=== PATIENT | male | born 1995 | race Caucasian/White ===

== ENCOUNTER 2021-08-02 22:58 | Inpatient (IN) | payer MEDICAID, SELFPAY ==
--- NOTE | ~2021-08-02 | MR_ITS ---
MR BRAIN WITHOUT AND WITH CONTRAST MR CERVICAL SPINE WITHOUT AND WITH CONTRAST MR ANGIOGRAPHY BRAIN WITHOUT CONTRAST MR ANGIOGRAPHY NECK WITHOUT AND WITH CONTRAST CLINICAL INFORMATION: Right-sided weakness. Left-sided tingling. COMPARISON: Head CT August 03, 2021. TECHNIQUE: Multiplanar, multisequence MR imaging was performed through the brain and cervical spine before and after the intravenous administration of 10 mL Gadavist. In addition, 3D [id number] MR angiography was performed through the neck and brain without the use of intravenous contrast, and source images were reviewed along with rotating MIPs. Finally, bolus IV and postcontrast MR angiography was performed through the cervicocerebral vasculature. Source images were reviewed and additional volumetric and angled MIPs were independently generated and archived by the [facility]. Stenoses are assessed in accordance with NASCET criteria unless otherwise indicated. FINDINGS: BRAIN MRI: Moderate T2 signal hyperintense lesions within the supratentorial periventricular and juxtacortical white matter, the corpus callosum, as well as to a lesser extent the infratentorial brain most compatible with the sequela of demyelinating disease. There are multiple enhancing lesions within the anterior left frontal subcortical white matter, the right and left centrum semiovale, as well as the biparietal subcortical white matter and the left temporal white matter that are most suggestive of enhancing active demyelinating lesions. Multiple chronic low T1 signal intensity lesions. The stroke sensitive diffusion series and the blood sensitive gradient series are very limited by artifact from the patient's oral hardware. CERVICAL SPINE MRI: There is a T2 signal hyperintense lesion within the right half of the cord at the C2-C3 level exhibiting partial peripheral enhancement, most concerning for a focus of active demyelination given the intracranial findings. There is an additional lesion within the right lateral cord at C7-T1 that may exhibit partial peripheral enhancement and could also reflect a focus of active demyelination. No definite additional cord lesions with assessment limited by artifact. Straightening of the cervical lordosis. No bone marrow edema. Vertebral body heights are maintained. Disc volumes are preserved. Craniocervical junction is unremarkable. Cervical arterial flow voids are maintained. There are no significant extraspinal soft tissue findings. No significant cervical disc herniations. No central canal stenosis and no foraminal stenosis within the cervical spine. BRAIN MRA: Limited motion degraded MRA of the head with no definite proximal arterial occlusions. The distal intracranial arterial vasculature is not well assessed secondary to artifact and there is nondiagnostic assessment for aneurysms given the degree of artifact. NECK MRA: There is a classic configuration of the aortic arch. The vertebral arteries are codominant and widely patent from their ostia until their entry into the skull base. Both common and internal carotid arteries are normal in course and caliber. MR/MR cervical spine wo/w con IMPRESSION: - Moderate T2 signal hyperintense lesions within the supratentorial periventricular and juxtacortical white matter, the corpus callosum, as well as to a lesser extent the infratentorial brain most compatible with the sequela of demyelinating disease. There are multiple enhancing lesions within the anterior left frontal subcortical white matter, the right and left centrum semiovale, as well as the biparietal subcortical white matter and the left temporal white matter that are most suggestive of enhancing active demyelinating lesions. - There is a T2 signal hyperintense lesion within the right half of the cord at the C2-C3 level exhibiting partial peripheral enhancement, most concerning for a focus of active demyelination given the intracranial findings. There is an additional lesion within the right lateral cord at C7-T1 that may exhibit partial peripheral enhancement and could also reflect a focus of active demyelination. No definite additional cord lesions with assessment limited by artifact. - Limited motion degraded MRA of the head with no definite proximal arterial occlusions. The distal intracranial arterial vasculature is not well assessed secondary to artifact and there is nondiagnostic assessment for aneurysms given the degree of artifact. -Unremarkable MRA of the neck.
--- NOTE | ~2021-08-02 | XR_ITS ---
EXAMINATION: XR CHEST CLINICAL INFORMATION: Right-sided weakness COMPARISON: None TECHNIQUE: Frontal view of the chest was obtained. FINDINGS: The lungs are clear with no focal consolidation. No evidence of pneumothorax, pulmonary edema, or pleural effusions. The cardiomediastinal silhouette is unremarkable. No acute osseous findings. XR/XR chest 1V IMPRESSION: No acute cardiopulmonary findings.
--- NOTE | ~2021-08-02 | CT_ITS ---
EXAMINATION: CT HEAD WITHOUT CONTRAST CLINICAL INFORMATION: Right-sided weakness COMPARISON: None TECHNIQUE: Contiguous axial imaging was performed from the skull base to vertex without intravenous administration of contrast. This CT examination was performed using dose optimization techniques as appropriate, variously including the following: *Automated exposure control *Adjustment of mA and/or kV according to patient size (this includes techniques or standardized protocols for targeted exams where dose is matched to indication/reason for exam; i.e. extremities or head) *Use of iterative reconstruction technique DLP: 786 mGy-cm FINDINGS: There is no evidence of acute intracranial hemorrhage or territorial infarction. No abnormal mass effect or midline shift is seen. Wright to white matter differentiation is well preserved. No extra-axial fluid collections are identified. The ventricles are normal in size. There is no abnormal attenuation within the brain parenchyma. The osseous structures and soft tissues are normal. The mastoid air cells and visualized portions of the paranasal sinuses are well aerated. CT/CT head/brain wo con IMPRESSION: No acute intracranial pathology.
--- NOTE | ~2021-08-02 | MR_ITS ---
MR BRAIN WITHOUT AND WITH CONTRAST MR CERVICAL SPINE WITHOUT AND WITH CONTRAST MR ANGIOGRAPHY BRAIN WITHOUT CONTRAST MR ANGIOGRAPHY NECK WITHOUT AND WITH CONTRAST CLINICAL INFORMATION: Right-sided weakness. Left-sided tingling. COMPARISON: Head CT August 03, 2021. TECHNIQUE: Multiplanar, multisequence MR imaging was performed through the brain and cervical spine before and after the intravenous administration of 10 mL Gadavist. In addition, 3D [id number] MR angiography was performed through the neck and brain without the use of intravenous contrast, and source images were reviewed along with rotating MIPs. Finally, bolus IV and postcontrast MR angiography was performed through the cervicocerebral vasculature. Source images were reviewed and additional volumetric and angled MIPs were independently generated and archived by the [facility] laboratory. Stenoses are assessed in accordance with NASCET criteria unless otherwise indicated. FINDINGS: BRAIN MRI: Moderate T2 signal hyperintense lesions within the supratentorial periventricular and juxtacortical white matter, the corpus callosum, as well as to a lesser extent the infratentorial brain most compatible with the sequela of demyelinating disease. There are multiple enhancing lesions within the anterior left frontal subcortical white matter, the right and left centrum semiovale, as well as the biparietal subcortical white matter and the left temporal white matter that are most suggestive of enhancing active demyelinating lesions. Multiple chronic low T1 signal intensity lesions. The stroke sensitive diffusion series and the blood sensitive gradient series are very limited by artifact from the patient's oral hardware. CERVICAL SPINE MRI: There is a T2 signal hyperintense lesion within the right half of the cord at the C2-C3 level exhibiting partial peripheral enhancement, most concerning for a focus of active demyelination given the intracranial findings. There is an additional lesion within the right lateral cord at C7-T1 that may exhibit partial peripheral enhancement and could also reflect a focus of active demyelination. No definite additional cord lesions with assessment limited by artifact. Straightening of the cervical lordosis. No bone marrow edema. Vertebral body heights are maintained. Disc volumes are preserved. Craniocervical junction is unremarkable. Cervical arterial flow voids are maintained. There are no significant extraspinal soft tissue findings. No significant cervical disc herniations. No central canal stenosis and no foraminal stenosis within the cervical spine. BRAIN MRA: Limited motion degraded MRA of the head with no definite proximal arterial occlusions. The distal intracranial arterial vasculature is not well assessed secondary to artifact and there is nondiagnostic assessment for aneurysms given the degree of artifact. NECK MRA: There is a classic configuration of the aortic arch. The vertebral arteries are codominant and widely patent from their ostia until their entry into the skull base. Both common and internal carotid arteries are normal in course and caliber. MR/MR angio head wo con IMPRESSION: - Moderate T2 signal hyperintense lesions within the supratentorial periventricular and juxtacortical white matter, the corpus callosum, as well as to a lesser extent the infratentorial brain most compatible with the sequela of demyelinating disease. There are multiple enhancing lesions within the anterior left frontal subcortical white matter, the right and left centrum semiovale, as well as the biparietal subcortical white matter and the left temporal white matter that are most suggestive of enhancing active demyelinating lesions. - There is a T2 signal hyperintense lesion within the right half of the cord at the C2-C3 level exhibiting partial peripheral enhancement, most concerning for a focus of active demyelination given the intracranial findings. There is an additional lesion within the right lateral cord at C7-T1 that may exhibit partial peripheral enhancement and could also reflect a focus of active demyelination. No definite additional cord lesions with assessment limited by artifact. - Limited motion degraded MRA of the head with no definite proximal arterial occlusions. The distal intracranial arterial vasculature is not well assessed secondary to artifact and there is nondiagnostic assessment for aneurysms given the degree of artifact. -Unremarkable MRA of the neck.
[2021-08-03 00:05] VITALS: BP 151/77; PULSE 82; RESP 16; TEMP 36.9; O2SAT 100; BMI 20.7
--- NOTE | 2021-08-03 00:34 | ED.GENADULT ---
HPI - General Adult General Chief complaint: General Medical Stated complaint: Loosing movement legs/hands Time Seen by Provider: 08/03/21 00:34 Related Data Home Medications Medication Instructions Recorded Confirmed No Known Home Meds 08/03/21 08/03/21 Allergies Allergy/AdvReac Type Severity Reaction Status Date / Time No Known Allergies Allergy Unverified 08/02/20 18:56 [No Known Allergies*] FORMERLY [facility] Past Medical History Medical History No known health problems Social History Social History Household Members: Family Housing: House Do you presently have visiting nurse or other home services: No Patient Tobacco Use Status: Never used Tobacco Physical Exam Vital Signs: Vital Signs: Last Vital Signs Temp 97.9 F 08/04/21 23:31 Pulse 89 08/04/21 23:31 Resp 16 08/04/21 23:31 BP 98/60 08/04/21 23:31 Pulse Ox 98 08/04/21 23:31 Body Mass Index 20.7 Medical Decision Making Lab Data Result diagrams: 08/03/21 07:00 08/03/21 07:00 Labs: Lab Results 08/03/21 08/03/21 08/03/21 Range/Units 01:07 01:07 01:07 WBC 8.7 (4.8-10.8) X10*3/uL RBC 4.92 (4.60-5.80) X10*6/uL Hgb 14.7 (14.0-18.0) g/dl Hct 43.0 (42-52) % MCV 87.4 (80-98) fL MCH 29.9 (27.0-33.0) pg MCHC 34.2 (31.0-36.0) g/dl RDW 13.2 (11.0-16.0) % Plt Count 260 (160-400) X10*3/uL MPV 9.2 L (9.4-12.4) fL Immature Gran % (Auto) 0.1 (0.0-0.4) % Neut % (Auto) 49.8 (45-73) % Lymph % (Auto) 38.3 (20-40) % [place] % (Auto) 8.6 (2-11) % Eos % (Auto) 2.5 (0-4) % Baso % (Auto) 0.7 (0-2) % Lymph # (Auto) 3.3 (1.2-4.9) X10*3/uL [place] # (Auto) 0.8 (0.1-1.2) X10*3/uL Eos # (Auto) 0.2 (0.0-0.4) X10*3/uL Baso # (Auto) 0.1 (0.0-0.2) X10*3/uL Abs Immat Gran (auto) 0.01 (0.00-0.03) X10*3/uL Absolute Neuts (auto) 4.3 (2.0-8.3) X10*3/uL Absolute Nucleated RBC 0.000 (0.0-0.012) X10*3/uL Nucleated RBC % (auto) 0.0 (0.0-0.2) /100WBC Sodium 139 (135-145) mmol/L Potassium 3.6 (3.3-5.1) mmol/L Chloride 104 (96-108) mmol/L Carbon Dioxide 25 (22-29) mmol/L Anion Gap 14 (12-20) BUN 14 (9-16) mg/dL Creatinine 0.88 (0.5-1.4) mg/dL Estim Creat Clear Calc 121.4 Estimated GFR > 60 Random Glucose 101 (60-115) mg/dL Estimat Average Glucose mg/dL Hemoglobin A1c % % Calcium 9.9 (8.4-10.2) mg/dL Total Bilirubin 0.8 (0.0-1.0) mg/dL Direct Bilirubin 0.3 (0.0-0.5) mg/dL AST 14 (5-37) U/L ALT 13 (0-40) U/L Alkaline Phosphatase 44 (39-117) U/L Total Creatine Kinase 133 (38-174) U/L Troponin I High Sens < 3.5 (<3.5-35.0) ng/L B-Natriuretic Peptide 11 (<100) pg/mL Total Protein 7.2 (6.5-8.0) g/dL Albumin 4.8 (3.5-5.0) g/dL Lipase 15 (8-78) U/L TSH 1.82 (0.32-4.0) uIU/mL Urine Color Urine Appearance Urine pH (5.0-8.0) Ur Specific [place] (1.005-1.025) Urine Protein (NEG-TRACE) MG/DL Urine Glucose (UA) (NEG) MG/DL Urine Ketones (NEG) MG/DL Urine Blood (NEG) Urine Nitrite (NEG) Ur Leukocyte Esterase (NEG) Urine Opiates Screen (Not Detect) Urine Fentanyl Screen (Not Detect) Ur Barbiturates Screen (Not Detect) Ur Phencyclidine Scrn (Not Detect) Ur Amphetamines Screen (Not Detect) U Benzodiazepines Scrn (Not Detect) Urine Cocaine Screen (Not Detect) U Marijuana (THC) Screen (Not Detect) COVID-19 ([facility]) (Negative) COVID-19 Clin Com 08/03/21 08/03/21 08/03/21 Range/Units 01:07 01:07 02:06 WBC (4.8-10.8) X10*3/uL RBC (4.60-5.80) X10*6/uL Hgb (14.0-18.0) g/dl Hct (42-52) % MCV (80-98) fL MCH (27.0-33.0) pg MCHC (31.0-36.0) g/dl RDW (11.0-16.0) % Plt Count (160-400) X10*3/uL MPV (9.4-12.4) fL Immature Gran % (Auto) (0.0-0.4) % Neut % (Auto) (45-73) % Lymph % (Auto) (20-40) % [place] % (Auto) (2-11) % Eos % (Auto) (0-4) % Baso % (Auto) (0-2) % Lymph # (Auto) (1.2-4.9) X10*3/uL [place] # (Auto) (0.1-1.2) X10*3/uL Eos # (Auto) (0.0-0.4) X10*3/uL Baso # (Auto) (0.0-0.2) X10*3/uL Abs Immat Gran (auto) (0.00-0.03) X10*3/uL Absolute Neuts (auto) (2.0-8.3) X10*3/uL Absolute Nucleated RBC (0.0-0.012) X10*3/uL Nucleated RBC % (auto) (0.0-0.2) /100WBC Sodium (135-145) mmol/L Potassium (3.3-5.1) mmol/L Chloride (96-108) mmol/L Carbon Dioxide (22-29) mmol/L Anion Gap (12-20) BUN (9-16) mg/dL Creatinine (0.5-1.4) mg/dL Estim Creat Clear Calc Estimated GFR Random Glucose (60-115) mg/dL Estimat Average Glucose 97 mg/dL Hemoglobin A1c % 5.0 % Calcium (8.4-10.2) mg/dL Total Bilirubin (0.0-1.0) mg/dL Direct Bilirubin (0.0-0.5) mg/dL AST (5-37) U/L ALT (0-40) U/L Alkaline Phosphatase (39-117) U/L Total Creatine Kinase (38-174) U/L Troponin I High Sens (<3.5-35.0) ng/L B-Natriuretic Peptide (<100) pg/mL Total Protein (6.5-8.0) g/dL Albumin (3.5-5.0) g/dL Lipase (8-78) U/L TSH (0.32-4.0) uIU/mL Urine Color YELLOW Urine Appearance CLEAR Urine pH 6.0 (5.0-8.0) Ur Specific [place] 1.025 (1.005-1.025) Urine Protein NEG (NEG-TRACE) MG/DL Urine Glucose (UA) NEG (NEG) MG/DL Urine Ketones 5 (NEG) MG/DL Urine Blood NEG (NEG) Urine Nitrite NEG (NEG) Ur Leukocyte Esterase NEG (NEG) Urine Opiates Screen (Not Detect) Urine Fentanyl Screen (Not Detect) Ur Barbiturates Screen (Not Detect) Ur Phencyclidine Scrn (Not Detect) Ur Amphetamines Screen (Not Detect) U Benzodiazepines Scrn (Not Detect) Urine Cocaine Screen (Not Detect) U Marijuana (THC) Screen (Not Detect) COVID-19 ([facility]) Negative (Negative) COVID-19 Clin Com See Note 08/03/21 Range/Units 02:06 WBC (4.8-10.8) X10*3/uL RBC (4.60-5.80) X10*6/uL Hgb (14.0-18.0) g/dl Hct (42-52) % MCV (80-98) fL MCH (27.0-33.0) pg MCHC (31.0-36.0) g/dl RDW (11.0-16.0) % Plt Count (160-400) X10*3/uL MPV (9.4-12.4) fL Immature Gran % (Auto) (0.0-0.4) % Neut % (Auto) (45-73) % Lymph % (Auto) (20-40) % [place] % (Auto) (2-11) % Eos % (Auto) (0-4) % Baso % (Auto) (0-2) % Lymph # (Auto) (1.2-4.9) X10*3/uL [place] # (Auto) (0.1-1.2) X10*3/uL Eos # (Auto) (0.0-0.4) X10*3/uL Baso # (Auto) (0.0-0.2) X10*3/uL Abs Immat Gran (auto) (0.00-0.03) X10*3/uL Absolute Neuts (auto) (2.0-8.3) X10*3/uL Absolute Nucleated RBC (0.0-0.012) X10*3/uL Nucleated RBC % (auto) (0.0-0.2) /100WBC Sodium (135-145) mmol/L Potassium (3.3-5.1) mmol/L Chloride (96-108) mmol/L Carbon Dioxide (22-29) mmol/L Anion Gap (12-20) BUN (9-16) mg/dL Creatinine (0.5-1.4) mg/dL Estim Creat Clear Calc Estimated GFR Random Glucose (60-115) mg/dL Estimat Average Glucose mg/dL Hemoglobin A1c % % Calcium (8.4-10.2) mg/dL Total Bilirubin (0.0-1.0) mg/dL Direct Bilirubin (0.0-0.5) mg/dL AST (5-37) U/L ALT (0-40) U/L Alkaline Phosphatase (39-117) U/L Total Creatine Kinase (38-174) U/L Troponin I High Sens (<3.5-35.0) ng/L B-Natriuretic Peptide (<100) pg/mL Total Protein (6.5-8.0) g/dL Albumin (3.5-5.0) g/dL Lipase (8-78) U/L TSH (0.32-4.0) uIU/mL Urine Color Urine Appearance Urine pH (5.0-8.0) Ur Specific [place] (1.005-1.025) Urine Protein (NEG-TRACE) MG/DL Urine Glucose (UA) (NEG) MG/DL Urine Ketones (NEG) MG/DL Urine Blood (NEG) Urine Nitrite (NEG) Ur Leukocyte Esterase (NEG) Urine Opiates Screen Not Detected (Not Detect) Urine Fentanyl Screen Not Detected (Not Detect) Ur Barbiturates Screen Not Detected (Not Detect) Ur Phencyclidine Scrn Not Detected (Not Detect) Ur Amphetamines Screen Not Detected (Not Detect) U Benzodiazepines Scrn Not Detected (Not Detect) Urine Cocaine Screen Not Detected (Not Detect) U Marijuana (THC) Screen Not Detected (Not Detect) COVID-19 ([facility]) (Negative) COVID-19 Clin Com Discharge Plan Discharge Clinical Impression: Neurological complaint, Neurological disorder Patient Disposition: Admitted As Inpatient Interventions: Admission Worksheet (ED) Last Done: 08/04/21 16:56 Discharge Date/Time: 08/04/21 16:54
--- NOTE | 2021-08-03 00:58 | ECG_ITS ---
Test Reason : R SIDED WEAKNESS Blood Pressure : / mmHG Vent. Rate : 072 BPM Atrial Rate : 072 BPM P-R Int : 132 ms QRS Dur : 092 ms QT Int : 352 ms P-R-T Axes : 079 073 059 degrees QTc Int : 385 ms Normal sinus rhythm ST elevation, consider early repolarization, pericarditis, or injury Abnormal ECG No previous ECGs available Referred By: Robel Mixon Electronically Signed By:FAVIOLA MARQUEZ
[2021-08-03 01:15] LABS: Basophils Absolute Auto 0.1 X10*3/uL (0.0-0.2); Basophils Percent Auto 0.7 % (0-2); Eosinophils Absolute Auto 0.2 X10*3/uL (0.0-0.4); Eosinophils Percent Auto 2.5 % (0-4); Hemoglobin 14.7 g/dl (14.0-18.0); Imm Gran Abs Auto 0.01 X10*3/uL (0.00-0.03); Imm Gran Pct Auto 0.1 % (0.0-0.4); Lymphocytes Absolute Auto 3.3 X10*3/uL (1.2-4.9); Lymphocytes Percent Auto 38.3 % (20-40); MANUAL DIFF FLAG NO; Mean Corpuscular HGB Conc 34.2 g/dl (31.0-36.0); Mean Corpuscular Hemoglobin 29.9 pg (27.0-33.0); Mean Corpuscular Volume 87.4 fL (80-98); Mean Platelet Volume 9.2 fL (9.4-12.4); Monocytes Absolute Auto 0.8 X10*3/uL (0.1-1.2); Monocytes Percent Auto 8.6 % (2-11); Neutrophils Absolute Auto 4.3 X10*3/uL (2.0-8.3); Neutrophils Percent Auto 49.8 % (45-73); Platelet Count 260 X10*3/uL (160-400); Red Blood Count 4.92 X10*6/uL (4.60-5.80); Red Cell Distribution Width 13.2 % (11.0-16.0); White Blood Count 8.7 X10*3/uL (4.8-10.8)
[2021-08-03 01:30] LABS: COVID-19 Test Negative (Negative); IDNOW Serial# 9DD0AD1C
[2021-08-03 01:31] LABS: Alanine Aminotransferase 13 U/L (0-40); Albumin Level 4.8 g/dL (3.5-5.0); Alkaline Phosphatase 44 U/L (39-117); Anion Gap 14 (12-20); Aspartate Amino Transferase 14 U/L (5-37); Bilirubin Direct 0.3 mg/dL (0.0-0.5); Bilirubin Total 0.8 mg/dL (0.0-1.0); Blood Urea Nitrogen 14 mg/dL (9-16); Calcium 9.9 mg/dL (8.4-10.2); Carbon Dioxide 25 mmol/L (22-29); Chloride 104 mmol/L (96-108); Creatinine Clr Calc Pharmacy 121.4; Estimated Glomerular Filt Rate > 60; Glucose Random 101 mg/dL (60-115); Lipase 15 U/L (8-78); Potassium 3.6 mmol/L (3.3-5.1); Sodium 139 mmol/L (135-145); Total Protein 7.2 g/dL (6.5-8.0)
[2021-08-03] MEDS: 0.9 % Sodium Chloride 1,000 ML 999 ML IVCONT (01:32)
--- NOTE | 2021-08-03 01:35 | ED.NEUROSD ---
HPI - Neuro Symptoms/Deficit General Chief Complaint: General Medical Stated Complaint: Loosing movement legs/hands Time Seen by Provider: 08/03/21 00:34 Source: patient and family (mother) Mode of arrival: ambulatory Limitations: no limitations History of Present Illness HPI Narrative: 25-year-old male otherwise healthy came in for evaluation of a right-sided weakness and numbness started 5 days ago. Patient started to notice decreased sensation and decreases strength on the right arm 1st then followed by weakness in the right leg on the next day. Patient declined any headache, no nausea, no vomiting. Patient did not seek immediate medical attention thought that he is going to improve. Patient stated that the left side of his body also this sustaining a milder weekness and numbness. Family history is significant for LA at young age. Related Data Allergies Allergy/AdvReac Type Severity Reaction Status Date / Time No Known Allergies Allergy Unverified 08/02/20 18:56 [No Known Allergies*] Review of Systems Review of Systems: All other systems are reviewed and are negative Constitutional: Reports as per HPI and Reports no additional constitutional complaints Eyes: Reports as per HPI and Reports no additional eye complaints Reports system reviewed and no additional complaints, except as documented Cardiovascular: Reports as per HPI and Reports no additional cardiovascular complaints Respiratory: Reports as per HPI and Reports no additional respiratory complaints Gastrointestinal: Reports as per HPI and Reports no additional gastrointestinal complaints Genitourinary: Reports no additional female genitourinary complaints Musculoskeletal: Reports no additional musculoskeletal complaints Skin/Breast: Reports system reviewed and no additional complaints, except as docu Psychiatric: Reports no additional psychiatric complaints Endocrine: Reports no additional endocrine complaints Hematologic/Lymphatic: Reports no additional hematologic/lymphatic complaints Allergic/Immunologic: Reports no additional allergic/immunologic complaints Reports system reviewed and no additional complaints, except as documented and Reports Abnormal speech present. [facility] Past Medical History Medical History No known health problems Social History Social History Advance Directives: No Advance Directives Information Provided: No Physical Exam Vital Signs: Vital Signs: Last Vital Signs Temp 98.5 F 08/03/21 00:05 Pulse 82 08/03/21 00:05 Resp 16 08/03/21 00:05 BP 151/77 H 08/03/21 00:05 Pulse Ox 100 09/18/21 00:05 Body Mass Index 20.7 Vital signs have been reviewed as appeared to be correct. Blood pressure normal. Heart rate normal. Respiration rate normal. Temperature normal. Oxygen saturation normal. Appearance: Alert. Oriented X3. No acute distress. Head: Normal external exam. Normocephalic. Atraumatic. No Muñoz signs noted. No raccoon eyes noted Eyes: PERRLA. EOMI. Conjunctiva and sclera normal. Eyelids normal. ENT: TM's Normal. Pharynx normal. Uvula midline. Moist mucous membranes. No trismus noted. No drooling noted. No muffled voice noted. Neck: Normal inspection. Neck supple. FROM. No adenopathy. Thyroid Normal. No meningeal signs. No neck mass noted. CVS: Normal heart rate and rhythm. Heart sound normal. No murmurs noted. Pulses normal throughout. Respiratory: No respiratory distress. Painless inspiration. Breath sounds normal. No wheezes/rales/rhonchi noted. Chest nontender. No accessory muscle usage noted or decreased air movement noted. Abdomen: Soft and nontender. Bowel sounds normal in all 4 quadrants. No distention noted. No organomegaly noted. No visible injury noted. Back: No CVA tenderness. Full range of motion noted. Skin: Skin warm and dry. Normal skin color. Normal skin turgor. No rashes/lesions/lacerations noted. Extremities: No lower extremity edema. Extremities exhibit normal range of motion. Extremities nontender. Neuro: Oriented X 3. Please refer to NIH score Course Course Course Narrative: Assessment and plan. Right-sided neurological deficit, NIH score is 3, symptoms started 5 days ago patient delayed medical attention because he felt is going to get better, patient's mother had LA at age of 30 but no history of stroke at young age. Since patient's symptoms started 5 days ago there is no therapeutic intervention is needed at this point rather patient be admitted for diagnostic purpose and neurological consultation. Patient declined using any recreational drugs, no back pain, with normal WBCs and absence of fever and absence of IV drug abuse an absent of back pain epidural occupying mass is not likely diagnosis. MDM - Neuro Symptoms/Deficit Medical Records Attestation: I reviewed the patient's medical records. Lab Data Attestation: I reviewed the patient's lab results. Result diagrams: 08/03/21 01:07 08/03/21 01:07 Labs: Lab Results 08/03/21 08/03/21 08/03/21 Range/Units 01:07 01:07 01:07 WBC 8.7 (4.8-10.8) X10*3/uL RBC 4.92 (4.60-5.80) X10*6/uL Hgb 14.7 (14.0-18.0) g/dl Hct 43.0 (42-52) % MCV 87.4 (80-98) fL MCH 29.9 (27.0-33.0) pg MCHC 34.2 (31.0-36.0) g/dl RDW 13.2 (11.0-16.0) % Plt Count 260 (160-400) X10*3/uL MPV 9.2 L (9.4-12.4) fL Immature Gran % (Auto) 0.1 (0.0-0.4) % Neut % (Auto) 49.8 (45-73) % Lymph % (Auto) 38.3 (20-40) % [place] % (Auto) 8.6 (2-11) % Eos % (Auto) 2.5 (0-4) % Baso % (Auto) 0.7 (0-2) % Lymph # (Auto) 3.3 (1.2-4.9) X10*3/uL [place] # (Auto) 0.8 (0.1-1.2) X10*3/uL Eos # (Auto) 0.2 (0.0-0.4) X10*3/uL Baso # (Auto) 0.1 (0.0-0.2) X10*3/uL Abs Immat Gran (auto) 0.01 (0.00-0.03) X10*3/uL Absolute Neuts (auto) 4.3 (2.0-8.3) X10*3/uL Absolute Nucleated RBC 0.000 (0.0-0.012) X10*3/uL Nucleated RBC % (auto) 0.0 (0.0-0.2) /100WBC Sodium 139 (135-145) mmol/L Potassium 3.6 (3.3-5.1) mmol/L Chloride 104 (96-108) mmol/L Carbon Dioxide 25 (22-29) mmol/L Anion Gap 14 (12-20) BUN 14 (9-16) mg/dL Creatinine 0.88 (0.5-1.4) mg/dL Estim Creat Clear Calc 121.4 Estimated GFR > 60 Random Glucose 101 (60-115) mg/dL Calcium 9.9 (8.4-10.2) mg/dL Total Bilirubin 0.8 (0.0-1.0) mg/dL Direct Bilirubin 0.3 (0.0-0.5) mg/dL AST 14 (5-37) U/L ALT 13 (0-40) U/L Alkaline Phosphatase 44 (39-117) U/L Total Creatine Kinase 133 (38-174) U/L Troponin I High Sens < 3.5 (<3.5-35.0) ng/L B-Natriuretic Peptide 11 (<100) pg/mL Total Protein 7.2 (6.5-8.0) g/dL Albumin 4.8 (3.5-5.0) g/dL Lipase 15 (8-78) U/L COVID-19 ([facility]) (Negative) COVID-19 Clin Com 08/03/21 Range/Units 01:07 WBC (4.8-10.8) X10*3/uL RBC (4.60-5.80) X10*6/uL Hgb (14.0-18.0) g/dl Hct (42-52) % MCV (80-98) fL MCH (27.0-33.0) pg MCHC (31.0-36.0) g/dl RDW (11.0-16.0) % Plt Count (160-400) X10*3/uL MPV (9.4-12.4) fL Immature Gran % (Auto) (0.0-0.4) % Neut % (Auto) (45-73) % Lymph % (Auto) (20-40) % [place] % (Auto) (2-11) % Eos % (Auto) (0-4) % Baso % (Auto) (0-2) % Lymph # (Auto) (1.2-4.9) X10*3/uL [place] # (Auto) (0.1-1.2) X10*3/uL Eos # (Auto) (0.0-0.4) X10*3/uL Baso # (Auto) (0.0-0.2) X10*3/uL Abs Immat Gran (auto) (0.00-0.03) X10*3/uL Absolute Neuts (auto) (2.0-8.3) X10*3/uL Absolute Nucleated RBC (0.0-0.012) X10*3/uL Nucleated RBC % (auto) (0.0-0.2) /100WBC Sodium (135-145) mmol/L Potassium (3.3-5.1) mmol/L Chloride (96-108) mmol/L Carbon Dioxide (22-29) mmol/L Anion Gap (12-20) BUN (9-16) mg/dL Creatinine (0.5-1.4) mg/dL Estim Creat Clear Calc Estimated GFR Random Glucose (60-115) mg/dL Calcium (8.4-10.2) mg/dL Total Bilirubin (0.0-1.0) mg/dL Direct Bilirubin (0.0-0.5) mg/dL AST (5-37) U/L ALT (0-40) U/L Alkaline Phosphatase (39-117) U/L Total Creatine Kinase (38-174) U/L Troponin I High Sens (<3.5-35.0) ng/L B-Natriuretic Peptide (<100) pg/mL Total Protein (6.5-8.0) g/dL Albumin (3.5-5.0) g/dL Lipase (8-78) U/L COVID-19 ([facility]) Negative (Negative) COVID-19 Clin Com See Note Imaging Data Chest x-ray: Radiologist's impression: No acute cardiopulmonary findings. CT scan - head: Radiologist's impression: No acute intracranial pathology. ECG Data Attestation: I personally reviewed and interpreted this ECG as follows: Interpretation: Normal sinus rhythm at 72 beats per minutes, on normal axis deviation, normal intervals. NIH Stroke Scale Level of Consciousness: Alert Level of Consciousness Questions: Answers both questions correctly Level of Consciousness Commands: Performs both tasks correctly Best Gaze: Normal Visual: No visual loss Facial Palsy: Normal Motor Arm (Right): Drift Motor Arm (Left): No drift Motor Leg (Right): Drift Motor Leg (Left): No drift Limb Ataxia: Absent Sensory: Mild to moderate sensory loss (Mostly right upper extremities.) Best Language: No aphasia Dysarthia: Normal Extinction and Inattention: No abnormality Score: 3 Discharge Plan Discharge Clinical Impression: Neurological complaint, Neurological disorder Patient Disposition: Admitted As Inpatient
[2021-08-03 01:36] LABS: B Type Natriuretic Peptide 11 pg/mL (<100); Troponin-I High Sensitivity < 3.5 ng/L (<3.5-35.0)
[2021-08-03 02:08] VITALS: BP 116/61; PULSE 71; RESP 18; O2SAT 98
[2021-08-03 02:13] LABS: Appearance Urine CLEAR; Color Urine YELLOW; Glucose Urine UA NEG (NEG); Leukocyte Esterase Urine NEG (NEG); Nitrite Urine NEG (NEG); Specific Gravity - Urine 1.025 (1.005-1.025); UACC Culture Trigger NO; Urine Blood NEG (NEG); Urine Ketones 5 MG/DL (NEG); Urine Protein NEG (NEG-TRACE)
[2021-08-03 02:31] LABS: Amphetamine Screen Urine Not Detected (Not Detect); Barbiturates, Urine Not Detected (Not Detect); Benzodiazepines Screen Urine Not Detected (Not Detect); Cannabinoid Screen Urine Not Detected (Not Detect); Cocaine Screen Urine Not Detected (Not Detect); Fentanyl, urine Not Detected (Not Detect); Opiate Screen Urine Not Detected (Not Detect); Phencyclidine Screen Urine Not Detected (Not Detect)
--- NOTE | 2021-08-03 03:20 | P.HPHOSP_ITS ---
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 Patient reported that last Thursday he noticed right upper extremity weakness followed by right lower extremity weakness; associated with tingling in the right upper extremity and right lower extremity. Denies any fall, trauma. Denies lifting heavy weights. Denies any back pain or neck pain. Denies any headaches or blurry vision. Patient reports that today he noticed tingling in his left upper extremity; also this afternoon he had an episode dizziness with vomiting attributes to stomach upset. Denies any chest pain or palpitations. Denies any fever chills cough. Denies any recent travel or sick contacts. Review of all other systems is negative except mentioned above Spoke to the patient's mother bedside who mentioned that she had coronary dissection after she was doing Mahesh status post intervention at age of 30. Denies any family history of demyelinating disease neurological concerns except for grandmother had CVA denies any family history of seizure disorders. ER course: Per ER team patient had an a stroke scale of 3 noted for Neuro drift on right-sided; given symptoms are going on for 5 days mentioned patient is out of the window for any intervention. Did a CT head which showed no acute findings Labs essentially benign. Admitted to the hospital for further management <Yaw Yu MD - Last Filed: 08/03/21 06:38> [facility] Medical History: Medical History No known health problems <Yaw Yu MD - Last Filed: 08/03/21 06:38> Pertinent family history: Mother had coronary dissection at age of 30. Grandmother had CVA in the old age <Yaw Yu MD - Last Filed: 08/03/21 06:38> Social History: Social History Advance Directives: No Advance Directives Information Provided: No <Yaw Yu MD - Last Filed: 08/03/21 06:38> Meds Allergies/Adverse reactions: Allergies Allergy/AdvReac Type Severity Reaction Status Date / Time No Known Allergies Allergy Unverified 08/02/20 18:56 [No Known Allergies*] <Yaw Yu MD - Last Filed: 08/03/21 06:38> Home medications: Home Medications Medication Instructions Recorded Confirmed Last Taken Type No Known Home Meds 08/03/21 08/03/21 Unknown History <Yaw Yu MD - Last Filed: 08/03/21 06:38> Physical Exam Vital Signs and Narrative: Vital Signs: Last Vital Signs Temp 98.5 F 08/03/21 00:05 Pulse 71 08/03/21 02:08 Resp 18 08/03/21 02:08 BP 116/61 08/03/21 02:08 Pulse Ox 98 08/03/21 02:08 Body Mass Index 20.7 <Yaw Yu MD - Last Filed: 08/03/21 06:38> Gen: Appears be in no acute distress HEENT: NCAT, Moist mucosa. Pulmonary: Vesicular breath sounds, fair air entry CVS: Normal S1-S2 Abdomen: BS+, Soft, Nontender Extremities: Warm well perfused; no spinal tenderness noticed Neuro: Alert and awake. Cranial nerves intact; speech is clear; Strength: Left upper and lower extremity strength is 5/5; right upper extremity strength 4/5 and right lower extremity strength 4/5 Sensations: Reports tingling sensation in the left upper and left lower extremities; denies any numbness bilaterally <Yaw Yu MD - Last Filed: 08/03/21 06:38> Results Labs CBC and Chem 7: : 08/03/21 07:00 08/03/21 07:00 <Yaw Yu MD - Last Filed: 08/03/21 06:38> Labs: Laboratory Results - last 24 hr 08/03/21 08/03/21 08/03/21 01:07 01:07 01:07 MCV 87.4 MCH 29.9 MCHC 34.2 RDW 13.2 Plt Count 260 MPV 9.2 L Immature Gran % (Auto) 0.1 Neut % (Auto) 49.8 Lymph % (Auto) 38.3 [place] % (Auto) 8.6 Eos % (Auto) 2.5 Baso % (Auto) 0.7 Lymph # (Auto) 3.3 [place] # (Auto) 0.8 Eos # (Auto) 0.2 Baso # (Auto) 0.1 Abs Immat Gran (auto) 0.01 Absolute Neuts (auto) 4.3 Absolute Nucleated RBC 0.000 Nucleated RBC % (auto) 0.0 Anion Gap 14 Estim Creat Clear Calc 121.4 Estimated GFR > 60 Random Glucose 101 Calcium 9.9 Total Bilirubin 0.8 Direct Bilirubin 0.3 AST 14 ALT 13 Alkaline Phosphatase 44 Total Creatine Kinase 133 Troponin I High Sens < 3.5 B-Natriuretic Peptide 11 Total Protein 7.2 Albumin 4.8 Lipase 15 Urine Color Urine Appearance Urine pH Ur Specific [place] Urine Protein Urine Glucose (UA) Urine Ketones Urine Blood Urine Nitrite Ur Leukocyte Esterase Urine Opiates Screen Urine Fentanyl Screen Ur Barbiturates Screen Ur Phencyclidine Scrn Ur Amphetamines Screen U Benzodiazepines Scrn Urine Cocaine Screen U Marijuana (THC) Screen COVID-19 ([facility]) COVID-19 Clin Com 08/03/21 08/03/21 08/03/21 01:07 02:06 02:06 MCV MCH MCHC RDW Plt Count MPV Immature Gran % (Auto) Neut % (Auto) Lymph % (Auto) [place] % (Auto) Eos % (Auto) Baso % (Auto) Lymph # (Auto) [place] # (Auto) Eos # (Auto) Baso # (Auto) Abs Immat Gran (auto) Absolute Neuts (auto) Absolute Nucleated RBC Nucleated RBC % (auto) Anion Gap Estim Creat Clear Calc Estimated GFR Random Glucose Calcium Total Bilirubin Direct Bilirubin AST ALT Alkaline Phosphatase Total Creatine Kinase Troponin I High Sens B-Natriuretic Peptide Total Protein Albumin Lipase Urine Color YELLOW Urine Appearance CLEAR Urine pH 6.0 Ur Specific [place] 1.025 Urine Protein NEG Urine Glucose (UA) NEG Urine Ketones 5 Urine Blood NEG Urine Nitrite NEG Ur Leukocyte Esterase NEG Urine Opiates Screen Not Detected Urine Fentanyl Screen Not Detected Ur Barbiturates Screen Not Detected Ur Phencyclidine Scrn Not Detected Ur Amphetamines Screen Not Detected U Benzodiazepines Scrn Not Detected Urine Cocaine Screen Not Detected U Marijuana (THC) Screen Not Detected COVID-19 ([facility]) Negative COVID-19 Clin Com See Note <Yaw Yu MD - Last Filed: 08/03/21 06:38> Imaging Radiologist's Impressions: Impressions Chest X-Ray 08/03/21 00:58 IMPRESSION: No acute cardiopulmonary findings. Head CT 08/03/21 00:58 IMPRESSION: No acute intracranial pathology. 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 Admitted to the hospital for further management. Right-sided weakness/tingling: Noted 4/5 strength in right upper and lower extremities; Patient also complains of left upper extremity tingling. ? CVA versus demyelinating disease versus spinal cord pathology. Will obtain MRI brain/MRA head and neck/MRI of the cervical spine Neurology consulted: spoke to Dr Wolf -> discussed the case-> recommended MR I brain and Cervical Spine. (Confirmed with Nursing environmental services supervisor abt availability of MRI on thursday) Will obtain TSH, folate, B12,RPR, HUNTER panel, Tick panel, lipid profile, hemoglobin A1c, ESR, CRP Dysphagia screen/PT/OT Echo with bubble study Telemetry DVT prophylaxis: SCD boots Code status: Code Off note: Things to follow by the day hospitalist when assumed care on at 7:00 a.m.: MRI results Results of TSH, folate, B12, year, and panel, hemoglobin A1c, lipid profile Echo Neurology consult. 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 Admitted to the hospital for further management. Right-sided weakness/tingling: Noted 4/5 strength in right upper and lower extremities; Patient also complains of left upper extremity tingling. ? CVA versus demyelinating disease versus spinal cord pathology. Will obtain MRI brain/MRA head and neck/MRI of the cervical spine Neurology consulted: spoke to Dr Wolf -> discussed the case-> recommended MRI brain and Cervical Spine. (Confirmed with Nursing environmental services supervisor abt availability of MRI on thursday) Will obtain TSH, folate, B12,RPR, HUNTER panel, Tick panel, lipid profile, hemoglobin A1c, ESR, CRP Dysphagia screen/PT/OT Echo with bubble study Telemetry DVT prophylaxis: SCD boots Code status: Code Off note: Things to follow by the day hospitalist when assumed care on at 7:00 a.m.: MRI results Results of TSH, folate, B12, year, and panel, hemoglobin A1c, lipid profile Echo Neurology consult. Day hospitalist update MRI/MRA head/neck/C-spine - Moderate T2 signal hyperintense lesions within the supratentorial periventricular and juxtacortical white matter, the corpus callosum, as well as to a lesser extent the infratentorial brain most compatible with the sequela of demyelinating disease. There are multiple enhancing lesions within the anterior left frontal subcortical white matter, the right and left centrum semiovale, as well as the biparietal subcortical white matter and the left temporal white matter that are most suggestive of enhancing active demyelinating lesions. ? - There is a T2 signal hyperintense lesion within the right half of the cord at the C2-C3 level exhibiting partial peripheral enhancement, most concerning for a focus of active demyelination given the intracranial findings. There is an additional lesion within the right lateral cord at C7-T1 that may exhibit partial peripheral enhancement and could also reflect a focus of active demyelination. No definite additional cord lesions with assessment limited by artifact. ? - Limited motion degraded MRA of the head with no definite proximal arterial occlusions. The distal intracranial arterial vasculature is not well assessed secondary to artifact and there is nondiagnostic assessment for aneurysms given the degree of artifact. 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
--- NOTE | 2021-08-03 03:43 | PC.NURSE ---
NEURO ASSESSMENT REMAINS UNCHANGED. PATIENT CONTINUES TO HAVE RIGHT SIDED WEAKNESS AND DIFFICULTY MOVING THE EXTREMITIES. PATIENT RESTING COMFORTABLY REPORTS NO PAIN OR DISTRESS. SEEN BY HOSPITALIST AND PLAN OF CARE FOR ADMISSION DISCUSSED.
[2021-08-03] MEDS: Dextrose 5 % and 0.45 % NaCl 1,000 ML 100 ML IVCONT ×2 (03:46→14:21)
[2021-08-03 04:08] LABS: Thyroid Stimulating Hormone 1.82 uIU/mL (0.32-4.0)
--- NOTE | 2021-08-03 04:11 | PC.NURSE ---
CT SCAN REPORTED PATIENT WAS ABLE TO SLIDE HIMSELF FROM STRETCHER TO CT TABLE AND BACK WITH HIS OWN STRENGTH. PATIENT ALSO WAS ABLE TO AMBULATE STEADILY EARLIER TO THE BATHROOM WITH STAFF MEMBER. PATIENT DURING NEURO EXAM EXHIBITED WEAKNESS IN THE RIGHT SIDE, HAVING SOME DIFFICULTY HOLD HIS ARM AND LEG UP. SPEECH IS REPORTED TO BE WITHIN NORMAL LIMITS PER PATIENT. PATIENT AFTER NEURO ASSESSMENT WAS ABLE TO TAKE HIS HEADPHONES OUT OF HIS EAR TO LISTEN TO RN BETTER WITH HIS RIGHT HAND SHOWING NO DRIFT AT THAT TIME. PATIENT ABLE TO TURN AND REPOSITION HIMSELF IN THE BED. ALERT AND ORIENTED, SKIN IS WITHIN NORMAL LIMITS FOR PATIENT. FAMILY MEMBER AT BEDSIDE. INFORMED BY IMAGING THAT PATIENT WILL HAVE AN MRI IN THE AM. MAINTENANCE FLUIDS RUNNING WITHOUT ISSUE.
--- NOTE | 2021-08-03 06:22 | PC.NURSE ---
NEURO ASSESSMENT REMAINS UNCHANGED, PATIENT ABLE TO MOVE EXTREMITIES BUT HAVING WEAKNESS AND DROPPING ARM AND LEG. PATIENT IS ALERT AND ORIENTED TO BASELINE.
[2021-08-03 07:08] LABS: MANUAL DIFF FLAG NO
[2021-08-03 07:16] LABS: Basophils Absolute Auto 0.1 X10*3/uL (0.0-0.2); Basophils Percent Auto 0.8 % (0-2); Eosinophils Absolute Auto 0.2 X10*3/uL (0.0-0.4); Eosinophils Percent Auto 3.2 % (0-4); Hematocrit 40.1 % (42-52); Hemoglobin 13.2 g/dl (14.0-18.0); Imm Gran Abs Auto 0.01 X10*3/uL (0.00-0.03); Imm Gran Pct Auto 0.2 % (0.0-0.4); Lymphocytes Absolute Auto 2.5 X10*3/uL (1.2-4.9); Lymphocytes Percent Auto 40.8 % (20-40); Mean Corpuscular HGB Conc 32.9 g/dl (31.0-36.0); Mean Corpuscular Hemoglobin 28.9 pg (27.0-33.0); Mean Corpuscular Volume 87.7 fL (80-98); Mean Platelet Volume 9.5 fL (9.4-12.4); Monocytes Absolute Auto 0.6 X10*3/uL (0.1-1.2); Monocytes Percent Auto 9.1 % (2-11); Neutrophils Absolute Auto 2.8 X10*3/uL (2.0-8.3); Neutrophils Percent Auto 45.9 % (45-73); Platelet Count 231 X10*3/uL (160-400); Red Blood Count 4.57 X10*6/uL (4.60-5.80); White Blood Count 6.2 X10*3/uL (4.8-10.8)
[2021-08-03 07:39] LABS: C Reactive Protein < 0.02 mg/dL (< or = 0.50)
[2021-08-03 07:42] LABS: Magnesium 2.1 mg/dL (1.6-2.6)
[2021-08-03 07:45] LABS: Anion Gap 9 (12-20); Blood Urea Nitrogen 12 mg/dL (9-16); Carbon Dioxide 26 mmol/L (22-29); Chloride 108 mmol/L (96-108); Creatinine Clr Calc Pharmacy 124.2; Estimated Glomerular Filt Rate > 60; Glucose Random 115 mg/dL (60-115); Potassium 3.8 mmol/L (3.3-5.1); Sodium 139 mmol/L (135-145)
[2021-08-03 07:47] LABS: Estimated Average Glucose 97 mg/dL
[2021-08-03 08:20] LABS: Erythrocyte Sedimentation Rate 1 MM/HR (0-15)
--- NOTE | 2021-08-03 10:38 | PC.NURSE ---
pt to mri at this time
--- NOTE | 2021-08-03 11:47 | PC.NURSE ---
call for report, rn to call back
[2021-08-03 15:33] VITALS: BP 101/55; PULSE 65; RESP 18; O2SAT 99
--- NOTE | 2021-08-03 17:56 | PC.NURSE ---
Patient able to make needs known. Family at bedside. Resting safely.
--- NOTE | 2021-08-03 19:07 | P.CNNE_ITS ---
History of Present Illness Data of Consult Service Date: 08/03/21 Primary Care Provider: Unknown Physician HPI Reason for consult: Right upper and right lower extremity numbness tingling and weakness, left This is a previously healthy 25-year-old man who is a student at [employer] 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 Five days ago he noted some weakness and numbness in the right upper extremity upon awakening but it was not bad enough to affect his function so he did not pay much attention. The symptoms persisted for 2-3 days and 3 days later he noted some tingling numbness in the right lower extremity and was dragging it slightly but still able to get around. He did not still seek medical attention. The day prior to presenting to the emergency room he noted some tingling in the left upper extremity and decided to come to the emergency room. He has not been sick with anything no viral infections no tick bites. He has no previous neurological symptoms. No involvement of his good eye. There is no pain numbness or Lhermitte's sign on neck movement he is still able to get around. No bladder or bowel control. His balance is slightly affected. His energy level is normal. Review of Systems Review of Systems: All other systems are reviewed and are negative Constitutional: Reports as per HPI and Reports no additional constitutional complaints Eyes: Reports as per HPI and Reports no additional eye complaints Reports system reviewed and no additional complaints, except as documented Cardiovascular: Reports as per HPI and Reports no additional cardiovascular complaints Respiratory: Reports as per HPI and Reports no additional respiratory complaints Gastrointestinal: Reports as per HPI and Reports no additional gastrointestinal complaints Genitourinary: Reports no additional female genitourinary complaints Musculoskeletal: Reports no additional musculoskeletal complaints Skin/Breast: Reports system reviewed and no additional complaints, except as docu Psychiatric: Reports no additional psychiatric complaints Endocrine: Reports no additional endocrine complaints Hematologic/Lymphatic: Reports no additional hematologic/lymphatic complaints Allergic/Immunologic: Reports no additional allergic/immunologic complaints Reports system reviewed and no additional complaints, except as documented and Reports Abnormal speech present. [facility] Past Medical History Medical History No known health problems Family History Pertinent family history: Mother had coronary dissection at age of 30. Grandmother had CVA in the old age Social History Social History Advance Directives: No Advance Directives Information Provided: No Meds Allergies Allergy/AdvReac Type Severity Reaction Status Date / Time No Known Allergies Allergy Unverified 08/02/20 18:56 [No Known Allergies*] Active Medications: Current Medications Acetaminophen (Acetaminophen 325 Mg Tablet) 650 mg PO Q6H PRN PRN Reason: Pain, Mild (Pain Scale 1-3) Dextrose/Sodium Chloride (D51/2ns) 1,000 mls @ 100 mls/hr IVCONT .Q10H [facility] Last Admin: 08/03/21 14:21 Dose: 100 mls/hr Documented by: Melatonin (Melatonin 3 Mg Tablet) 6 mg PO BEDTIME PRN PRN Reason: Insomnia Senna (Sennosides 8.6 Mg Tablet) 17.2 mg PO BEDTIME PRN PRN Reason: Constipation Sodium Chloride (0.9 % Sodium Chloride Flush 3 Ml Syringe) 3 ml IVFLUSH QSHIFT [facility] Last Admin: 08/03/21 16:40 Dose: Not Given Documented by: Home Medications Medication Instructions Recorded Confirmed Last Taken Type No Known Home Meds 08/03/21 08/03/21 Unknown History Physical Exam Vital Signs: Vital Signs: Last Vital Signs Temp 98.5 F 08/03/21 00:05 Pulse 65 08/03/21 15:33 Resp 18 08/03/21 15:33 BP 101/55 L 08/03/21 15:33 Pulse Ox 99 08/03/21 15:33 Body Mass Index 20.7 Neuro: Other: He is blind in the left eye. Right eye is normal with full range of motion and visual chamorro. No nystagmus. Lower cranial nerves are normal with no facial weakness. Tongue protrudes in the midline palatal movement is normal. He has a slight drift of the right upper extremity with mild weakness of the biceps triceps and deltoid graded at 5-/5. Left-sided strength is normal. Lower extremity strength is normal. He has slight right-sided hyperreflexia. There is bilateral extensor plantar responses. There was no loss of pinprick vibration on either side. Slightly unsteady gait no Lhermitte sign Results Labs CBC & Chem 7: 08/03/21 07:00 08/03/21 07:00 Labs: Short CBC 08/03/21 08/03/21 Range/Units 01:07 07:00 WBC 8.7 6.2 (4.8-10.8) X10*3/uL Hgb 14.7 13.2 L (14.0-18.0) g/dl Hct 43.0 40.1 L (42-52) % Plt Count 260 231 (160-400) X10*3/uL BMP 08/03/21 08/03/21 01:07 07:00 Sodium 139 139 Potassium 3.6 3.8 Chloride 104 108 Carbon Dioxide 25 26 BUN 14 12 Creatinine 0.88 0.86 Calcium 9.9 9.0 D Cardiac Enzymes 08/03/21 Range/Units 01:07 Total Creatine Kinase 133 (38-174) U/L Liver Function 08/03/21 Range/Units 01:07 Total Bilirubin 0.8 (0.0-1.0) mg/dL Direct Bilirubin 0.3 (0.0-0.5) mg/dL AST 14 (5-37) U/L ALT 13 (0-40) U/L Alkaline Phosphatase 44 (39-117) U/L Albumin 4.8 (3.5-5.0) g/dL Urine 08/03/21 Range/Units 02:06 Urine Color YELLOW Urine Appearance CLEAR Urine pH 6.0 (5.0-8.0) Ur Specific [place] 1.025 (1.005-1.025) Urine Protein NEG (NEG-TRACE) MG/DL Urine Glucose (UA) NEG (NEG) MG/DL Assessment and Plan (1) Relapsing remitting multiple sclerosis: Status: Acute MRI brain and C spine reviewed: Multiple T2 signal hyperintense lesions within the supratentorial periventricular and juxtacortical white matter bilaterally, involving the corpus callosum, as well as to a lesser extent the infratentorial brain most compatible with the sequela of demyelinating disease. There are some black holes in the white matter as well. There are multiple enhancing lesions within the anterior left frontal subcortical white matter, the right and left centrum semiovale, as well as the biparietal subcortical white matter and the left temporal white matter that are most suggestive of enhancing active demyelinating lesions. ? - There is a T2 signal hyperintense lesion within the right half of the cord at the C1-C3 level exhibiting partial peripheral enhancement, most concerning for a focus of active demyelination given the intracranial findings. There is an additional lesion within the right lateral cord at C7-T1 that may exhibit partial peripheral enhancement ? Recommendation: IV Solu-Medrol 1 g in 100 mL normal saline IV infusion over 1 hour every day starting today for 5 days. Check liver profile and REID virus titers. Outpatient follow-up in the office to go over treatment options. Because of the aggressive nature of his disease and spinal cord involvement at his young age he needs to be treated aggressively with either IV Tysabri or IV Ocrevus. I will go over this with him once we have the results of his lab work and the REID viral titers. I discussed the diagnosis treatment options and prognosis with the patient and his mother. All questions were answered to their satisfaction. - Procedures Date of Service Date of Service: 08/03/21
[2021-08-04] MEDS: Dextrose 5 % and 0.45 % NaCl 1,000 ML 100 ML IVCONT ×2 (00:03→09:49)
[2021-08-04] MEDS: 0.9 % Sodium Chloride Flush 3 ML SYRINGE IVFLUSH ×3 (00:04→21:32)
[2021-08-04 00:11] VITALS: BP 105/47; PULSE 74; RESP 14; O2SAT 97
--- NOTE | 2021-08-04 04:50 | PC.NURSE ---
pt is currently asleep, respirations even and unlabored, pt is awaiting room assignment
[2021-08-04 06:23] VITALS: BP 99/60; PULSE 65; RESP 16; O2SAT 98
[2021-08-04 07:51] LABS: Alanine Aminotransferase 10 U/L (0-40); Alkaline Phosphatase 40 U/L (39-117); Aspartate Amino Transferase 10 U/L (5-37); Bilirubin Direct 0.2 mg/dL (0.0-0.5); Bilirubin Total 0.4 mg/dL (0.0-1.0); Cholesterol 144 mg/dL; HDL Cholesterol 47 mg/dL; LDL Cholesterol Calculated 78 mg/dl; Total Protein 6.1 g/dL (6.5-8.0); Triglycerides 95 mg/dL
[2021-08-04] MEDS: methylPREDNISolone Sod Succ 1,000 MG in 0.9 % Sodium Chloride 50 ML 66 MG IV (09:49)
--- NOTE | 2021-08-04 11:32 | HO.PM.IMPN ---
Subjective Subjective Date of Service: 08/04/21 Interval History: RUE weakness RLE + LLE paresthesias no other complaints Review of Systems Review of Systems: Yes all other systems are reviewed and are negative Physical Exam Vital Signs: Vital Signs: Last Vital Signs Temp 98.5 F 08/03/21 00:05 Pulse 65 08/04/21 06:23 Resp 16 08/04/21 06:23 BP 99/60 08/04/21 06:23 Pulse Ox 98 08/04/21 06:23 Body Mass Index 20.7 Gen: in no acute distress HEENT: sclera anicteric, moist mucus membranes Neck: supple Lungs: clear to auscultation bilaterally Heart: regular rate and rhythm, no murmurs Abd: soft, non-tender, non-distended Ext: no edema Skin: warm/well-perfused Neuro: alert and oriented x3, 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, RUE weakness Psych: appropriate affect Objective Data Active Medications Acetaminophen (Acetaminophen 325 Mg Tablet) 650 mg PO Q6H PRN PRN Reason: Pain, Mild (Pain Scale 1-3) Dextrose/Sodium Chloride (D51/2ns) 1,000 mls @ 100 mls/hr IVCONT .Q10H [facility] Last Admin: 08/04/21 09:49 Dose: 100 mls/hr Documented by: MARY Methylprednisolone Sodium Succinate 1,000 mg/ Sodium Chloride 66 mls @ 66 mls/hr IV DAILY [facility] Stop: 08/08/21 09:59 Last Admin: 08/04/21 09:49 Dose: 66 mls/hr Documented by: MARY Melatonin (Melatonin 3 Mg Tablet) 6 mg PO BEDTIME PRN PRN Reason: Insomnia Senna (Sennosides 8.6 Mg Tablet) 17.2 mg PO BEDTIME PRN PRN Reason: Constipation Sodium Chloride (0.9 % Sodium Chloride Flush 3 Ml Syringe) 3 ml IVFLUSH QSHIFT [facility] Last Admin: 08/04/21 09:49 Dose: 3 ml Documented by: MARY Labs CBC & Chem 7: 08/03/21 07:00 08/03/21 07:00 Labs: Laboratory Results - last 24 hr 08/04/21 06:48 Total Bilirubin 0.4 Direct Bilirubin 0.2 AST 10 ALT 10 Alkaline Phosphatase 40 Total Protein 6.1 L Albumin 4.0 Triglycerides 95 Cholesterol 144 LDL Cholesterol, Calc 78 HDL Cholesterol 47 Assessment and Plan (1) Relapsing remitting multiple sclerosis: Status: Acute Assessment and Plan: 25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
[2021-08-04 16:00] VITALS: BP 119/48; PULSE 92; RESP 17; TEMP 36.3; O2SAT 99
--- NOTE | 2021-08-04 16:34 | PC.NURSE ---
pt aox3 amb with steady gait to br, tolerating po, needs being waiting on bed assignment. mom has been visiting with patient
--- NOTE | 2021-08-04 16:36 | PC.NURSE ---
REPORT GIVEN PT WILL BE TRANSFERED TO FLOOR
[2021-08-04 17:03] LABS: Glucose, Whole Blood 183 mg/dL (60-115)
[2021-08-04 19:29] VITALS: BP 113/51; PULSE 98; RESP 18; TEMP 36.3; O2SAT 99
[2021-08-04 21:12] LABS: Glucose, Whole Blood 190 mg/dL (60-115)
[2021-08-04 23:31] VITALS: BP 98/60; PULSE 89; RESP 16; TEMP 36.6; O2SAT 98
[2021-08-05 03:32] LABS: Syphilis Screen Nonreactive (Nonreactive)
[2021-08-05 03:35] LABS: Syphilis Screen Nonreactive (Nonreactive)
[2021-08-05 03:50] LABS: Folate 5.5 ng/mL (> or = 4.0); Vitamin B12 511 pg/mL (200-900)
[2021-08-05 03:57] LABS: HIV AB/AG Nonreactive (Nonreactive); HIV Num 1 0.09 S/CO (0.00-0.99)
[2021-08-05 03:58] VITALS: BP 90/42; PULSE 77; RESP 16; TEMP 36.4; O2SAT 99
[2021-08-05 08:00] VITALS: BP 112/52; PULSE 82; RESP 18; TEMP 36.1; O2SAT 98
--- NOTE | 2021-08-05 08:38 | MHC.CM.PN ---
PATIENT IS FULLY INDEPENDENT. HE IS A STUDENT AND LIVES ON CAMPUS AT THIS TIME. NO PCP. PATIENT BELIEVES THAT HE HAS [employer] AND IS CALLING [employer] TODAY TO INQUIRE. HE IS ALSO AWARE THAT [facility] CAN ASSIST IF HE EXPERIENCES DIFFICULTY . MOTHER IS IN ROOM. CASE MANAGEMENT TO RETURN TO ADDRESS TOPIC OF HCP.
--- NOTE | 2021-08-05 09:34 | HO.PM.IMPN ---
Subjective Subjective Date of Service: 08/05/21 Interval History: R hand slightly improved Review of Systems Review of Systems: Yes all other systems are reviewed and are negative Physical Exam Vital Signs: Vital Signs: Last Vital Signs Temp 97 F 08/05/21 08:00 Pulse 82 08/05/21 08:00 Resp 18 08/05/21 08:00 BP 112/52 L 08/05/21 08:00 Pulse Ox 98 08/05/21 08:00 Body Mass Index 20.7 Gen: in no acute distress HEENT: sclera anicteric, moist mucus membranes Neck: supple Lungs: clear to auscultation bilaterally Heart: regular rate and rhythm, no murmurs Abd: soft, non-tender, non-distended Ext: no edema Skin: warm/well-perfused Neuro: alert and oriented x3, 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, RUE weakness Psych: appropriate affect Objective Data Active Medications Acetaminophen (Acetaminophen 325 Mg Tablet) 650 mg PO Q6H PRN PRN Reason: Pain, Mild (Pain Scale 1-3) Methylprednisolone Sodium Succinate 1,000 mg/ Sodium Chloride 66 mls @ 66 mls/hr IV DAILY [facility] Stop: 08/08/21 09:59 Last Infusion: 08/04/21 17:13 Dose: 0 mls/hr Documented by: JACK Melatonin (Melatonin 3 Mg Tablet) 6 mg PO BEDTIME PRN PRN Reason: Insomnia Senna (Sennosides 8.6 Mg Tablet) 17.2 mg PO BEDTIME PRN PRN Reason: Constipation Sodium Chloride (0.9 % Sodium Chloride Flush 3 Ml Syringe) 3 ml IVFLUSH QSHIFT [facility] Last Admin: 08/04/21 21:32 Dose: 3 ml Documented by: ESDRAS Labs CBC & Chem 7: 08/03/21 07:00 08/03/21 07:00 Labs: Laboratory Results - last 24 hr 08/03/21 08/03/21 08/04/21 01:07 01:07 06:48 POC Glucose Vitamin B12 511 Folate 5.5 T.pallidum Ab (EIA) Nonreactive HIV 1&2 Ab/P24 Ag 4thGn Nonreactive 08/04/21 08/04/21 08/04/21 06:48 16:57 21:03 POC Glucose 183 H 190 H Vitamin B12 Folate T.pallidum Ab (EIA) Nonreactive HIV 1&2 Ab/P24 Ag 4thGn Assessment and Plan (1) Relapsing remitting multiple sclerosis: Status: Acute Assessment and Plan: hospital d#3 25yo M with L eye blindness from [place] disease presenting with RUE weakness and RLE/LLE paresthesias, found to have multiple demyelinating lesions consistent with MS - Neuro consulted - started high-dose methylprednisolone 1 g IV daily, on d#2/5 - REID virus titers sent in preparation for treatment with monoclonal antibodies - discharge home after last dose of high-dose steroids on 08/08 VTE ppx: SCDs Quality Stroke Does the patient have a stroke diagnosis?: No VTE Prior VTE?: No VTE Risk Level:: Medical - moderate - high VTE Device Contraindication: N/A - Device Ordered VTE Drug Contraindication: Treatment Not Indicated
[2021-08-05] MEDS: methylPREDNISolone Sod Succ 1,000 MG in 0.9 % Sodium Chloride 50 ML 66 MG IV (10:04)
[2021-08-05] MEDS: 0.9 % Sodium Chloride Flush 3 ML SYRINGE IVFLUSH ×2 (10:04→16:39)
[2021-08-05 10:12] LABS: Glucose, Whole Blood 132 mg/dL (60-115)
[2021-08-05 10:56] VITALS: BP 112/52; PULSE 82; O2SAT 98
[2021-08-05 11:37] VITALS: BP 122/52; PULSE 90; RESP 18; TEMP 36.5; O2SAT 100
[2021-08-05 11:46] VITALS: BMI 20.7
--- NOTE | 2021-08-05 12:13 | MHC.SL.SWA ---
Speech Pathologist Impression: Within Functional Limits Risk of Aspiration Due to: Neurological Condition Dysphasia Diet Status: No Change Liquid Consistency and Strategies for Safe Swallow: Liquid Intake Recommendation: THIN LIQUID Solid Food Consistency: Dietary Recommendations: REGULAR SOLIDS Oral Medication Intake: PILLS WHOLE IN LIQUID Recommendation for Speech: NA:Typical Evaluation Patient passed dysphagia and speech/language screenings. Housecleaner Clinican/Clinical Fellow: No Supervisory Statement: I have reviewed and agree with the student/clinical fellow's documentation: N/A Speech Language Pathologist: Cierra Nunez M.A., CCC-RN PERITONEAL DIALYSIS
[2021-08-05 15:56] VITALS: BP 115/56; PULSE 76; RESP 18; TEMP 36.6; O2SAT 98
[2021-08-05 16:44] LABS: Glucose, Whole Blood 148 mg/dL (60-115)
[2021-08-05 17:22] LABS: Lyme Abs Screen <0.90 index
[2021-08-05 19:11] LABS: A. Phagocytphilium DNA,RT-PCR NOT DETECTED (NOT DETECTED); Babesia Microti DNA, RT-PCR NOT DETECTED (NOT DETECTED); Borrelia Miyamotoi,DNA RT-PCR NOT DETECTED (NOT DETECTED); E.Chaffeensis DNA RT-PCR NOT DETECTED (NOT DETECTED); Lyme(Borrelia ssp)DNA RT-PCR NOT DETECTED (NOT DETECTED); Source-Tick borne disease EDTA
[2021-08-05 19:21] VITALS: BP 108/53; PULSE 80; RESP 20; TEMP 36.3; O2SAT 98
[2021-08-05 20:51] LABS: Glucose, Whole Blood 128 mg/dL (60-115)
[2021-08-05 22:26] LABS: Anti Nuclear Antibody Screen POSITIVE (NEGATIVE); Anti Nuclear Antibody Titer 1:40 titer
[2021-08-06] VITALS: BP 112/56; PULSE 85; RESP 20; TEMP 36.6; O2SAT 98
[2021-08-06 04:00] VITALS: BP 113/52; PULSE 68; RESP 20; TEMP 36.3; O2SAT 98
[2021-08-06 07:25] VITALS: BP 102/50; PULSE 80; RESP 14; TEMP 36.6; O2SAT 98
[2021-08-06] MEDS: methylPREDNISolone Sod Succ 1,000 MG in 0.9 % Sodium Chloride 50 ML 66 MG IV (09:35)
[2021-08-06] MEDS: 0.9 % Sodium Chloride Flush 3 ML SYRINGE IVFLUSH ×2 (09:35→15:08)
[2021-08-06 09:45] LABS: Glucose, Whole Blood 154 mg/dL (60-115)
[2021-08-06 11:24] VITALS: BP 105/55; PULSE 71; RESP 15; TEMP 36.4; O2SAT 99
--- NOTE | 2021-08-06 13:02 | P.PNIM_ITS ---
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, RUE weakness improving Psych: appropriate affect Objective Data Active Medications Acetaminophen (Acetaminophen 325 Mg Tablet) 650 mg PO Q6H PRN PRN Reason: Pain, Mild (Pain Scale 1-3) Methylprednisolone Sodium Succinate 1,000 mg/ Sodium Chloride 66 mls @ 66 mls/hr IV DAILY [facility] Stop: 08/08/21 09:59 Last Infusion: 08/06/21 10:55 Dose: 0 mls/hr Documented by: MITCHELL Melatonin (Melatonin 3 Mg Tablet) 6 mg PO BEDTIME PRN PRN Reason: Insomnia Senna (Sennosides 8.6 Mg Tablet) 17.2 mg PO BEDTIME PRN PRN Reason: Constipation Sodium Chloride (0.9 % Sodium Chloride Flush 3 Ml Syringe) 3 ml IVFLUSH QSHIFT [facility] Last Admin: 08/06/21 09:35 Dose: 3 ml Documented by: MITCHELL Labs CBC & Chem 7: 08/03/21 07:00 08/03/21 07:00 Labs: Laboratory Results - last 24 hr 08/03/21 08/03/21 08/04/21 07:00 07:00 06:48 POC Glucose HUNTER Screen POSITIVE A HUNTER Titer 1:40 H HUNTER Titer 2 1:80 H HUNTER Titer 3 TNP HUNTER Pattern SEE NOTE HUNTER Pattern 2 SEE NOTE HUNTER Pattern 3 TNP A.phagocytophil DNA PCR NOT DETECTED Babesia microti DNA PCR NOT DETECTED Borrelia sp DNA (PCR) NOT DETECTED Lyme Screen IgG & IgM <0.90 Lyme Progressive Test TNP Borrelia miyamotoi (PCR) NOT DETECTED E.chaffeensis DNA (PCR) NOT DETECTED Tick-borne Disease PCR EDTA 08/05/21 08/05/21 08/06/21 16:38 20:43 09:41 POC Glucose 148 H 128 H 154 H HUNTER Screen HUNTER Titer HUNTER Titer 2 HUNTER Titer 3 HUNTER Pattern HUNTER Pattern 2 HUNTER Pattern 3 A.phagocytophil DNA PCR Babesia microti DNA PCR Borrelia sp DNA (PCR) Lyme Screen IgG & IgM Lyme Progressive Test Borrelia miyamotoi (PCR) E.chaffeensis DNA (PCR) Tick-borne Disease PCR Assessment and Plan (1) Relapsing remitting multiple sclerosis: Status: Acute Assessment and Plan: 25yo M with L eye blindness from [place] disease presenting with RUE weakness and RLE/LLE paresthesias, found to have multiple demyelinating lesions consistent with MS - Neuro consulted - started high-dose methylprednisolone 1 g IV daily, on d#3/5 - REID virus titers sent in preparation for treatment with monoclonal antibodies - discharge home after last dose of high-dose steroids on 08/08 VTE ppx: SCDs Quality Stroke Does the patient have a stroke diagnosis?: No VTE Prior VTE?: No VTE Risk Level:: Medical - moderate - high VTE Device Contraindication: N/A - Device Ordered VTE Drug Contraindication: Treatment Not Indicated
[2021-08-06 16:00] VITALS: BP 110/51; PULSE 64; RESP 18; TEMP 36.7; O2SAT 100
[2021-08-06 19:55] VITALS: BP 132/60; PULSE 76; RESP 19; TEMP 36.8; O2SAT 100
[2021-08-06 23:06] LABS: Glucose, Whole Blood 118 mg/dL (60-115)
[2021-08-07] VITALS: BP 131/62; PULSE 72; RESP 19; TEMP 36.6; O2SAT 100
[2021-08-07] MEDS: 0.9 % Sodium Chloride Flush 3 ML SYRINGE IVFLUSH ×3 (00:25→15:18)
[2021-08-07 04:00] VITALS: BP 102/57; PULSE 73; RESP 19; TEMP 36.8; O2SAT 98
[2021-08-07 07:49] VITALS: BP 108/55; PULSE 68; RESP 17; TEMP 36.2; O2SAT 98
--- NOTE | 2021-08-07 09:15 | MHC.CLN ---
F/U DIET=REGULAR. APPEARS TO BE EATING 100% OF MEALS. NO NEW NUTRITION INTERVENTIONS.
[2021-08-07] MEDS: methylPREDNISolone Sod Succ 1,000 MG in 0.9 % Sodium Chloride 50 ML 66 MG IV (09:30)
[2021-08-07 10:21] LABS: Glucose, Whole Blood 122 mg/dL (60-115)
--- NOTE | 2021-08-07 13:23 | MHC.CM.PN ---
PLAN IS FOR ONE MORE DAY OF IV ABX AND DC TO HOME Thursday08/08/21
[2021-08-07 15:16] VITALS: BP 108/63; PULSE 83; RESP 18; TEMP 36.8; O2SAT 99
--- NOTE | 2021-08-07 15:56 | P.PNIM_ITS ---
Subjective Subjective Date of Service: 08/07/21 Interval History: MS excerebation Review of Systems Patient weakness Seems to be improving Denies any chest pain or shortness of breath or abdominal pain or fever chills or cough or phlegm. 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, RUE weakness improving Psych: appropriate affect Objective Data Active Medications Acetaminophen (Acetaminophen 325 Mg Tablet) 650 mg PO Q6H PRN PRN Reason: Pain, Mild (Pain Scale 1-3) Methylprednisolone Sodium Succinate 1,000 mg/ Sodium Chloride 66 mls @ 66 mls/hr IV DAILY [facility] Stop: 08/08/21 09:59 Last Infusion: 08/07/21 11:43 Dose: 0 mls/hr Documented by: MITCHELL Melatonin (Melatonin 3 Mg Tablet) 6 mg PO BEDTIME PRN PRN Reason: Insomnia Senna (Sennosides 8.6 Mg Tablet) 17.2 mg PO BEDTIME PRN PRN Reason: Constipation Sodium Chloride (0.9 % Sodium Chloride Flush 3 Ml Syringe) 3 ml IVFLUSH QSHIFT [facility] Last Admin: 08/07/21 15:18 Dose: 3 ml Documented by: WILBERT Labs CBC & Chem 7: 08/03/21 07:00 08/03/21 07:00 Labs: Laboratory Results - last 24 hr 08/06/21 08/07/21 23:02 10:17 POC Glucose 118 H 122 H Assessment and Plan (1) Relapsing remitting multiple sclerosis: Status: Acute Assessment and Plan: 25yo M with L eye blindness from [place] disease presenting with RUE weakness and RLE/LLE paresthesias, found to have multiple demyelinating lesions consistent with MS Neuro consulted- started high-dose methylprednisolone 1 g IV daily, on d#4/5 - REID virus titers sent in preparation for treatment with monoclonal antibodies pending - discharge home after last dose of high-dose steroids on 08/08 VTE ppx: SCDs Quality Stroke Does the patient have a stroke diagnosis?: No VTE Prior VTE?: No VTE Risk Level:: Medical - moderate - high VTE Device Contraindication: N/A - Device Ordered VTE Drug Contraindication: Treatment Not Indicated
[2021-08-07 16:49] LABS: Glucose, Whole Blood 154 mg/dL (60-115)
[2021-08-07 18:47] VITALS: BP 121/53; PULSE 86; RESP 18; TEMP 36.8; O2SAT 99
[2021-08-07 20:18] LABS: Glucose, Whole Blood 138 mg/dL (60-115)
[2021-08-08] VITALS: BP 108/54; PULSE 60; RESP 18; TEMP 36.3; O2SAT 98
[2021-08-08] MEDS: 0.9 % Sodium Chloride Flush 3 ML SYRINGE IVFLUSH ×2 (00:14→10:06)
[2021-08-08 04:00] VITALS: BP 116/58; PULSE 67; RESP 18; TEMP 36.3; O2SAT 99
[2021-08-08 07:56] VITALS: BP 110/56; PULSE 65; RESP 16; TEMP 36.7; O2SAT 95
--- NOTE | 2021-08-08 09:46 | P.DS_ITS ---
DS: Providers Provider Date of Service: 08/08/21 Date of admission: 08/03/21 03:15 Date of discharge: 08/08/21 Primary care physician: Unknown Physician Consults: 08/03/21 03:16 Consult to Neurology Routine Consulting Provider: Ziggy Wolf Reason for consultation: rt side weakness/ left side tingling DS: Diagnosis Discharge Diagnosis (1) Relapsing remitting multiple sclerosis: Status: Acute DS: Summary Hospital Course Hospital Course: 25yo M with L eye blindness from [place] disease presenting with RUE weakness and RLE/LLE paresthesias, found to have multiple demyelinating lesions consistent with MS. Hospital course: MS flare: Patient was seen by neuro: started on IV Solu-Medrol, subsequently flare seems to improved , completed solumedrol 5 days , follow up with neuro Dr Wolf in 1 week. REID virus labs still pending patient is to follow up outpatient with Dr. Wolf for further management. Above management discussed with the patient in detail length he understand and in agreement with the above plan, time spent 50 minutes and 50% time spent on counseling. Significant findings: As above. Procedures performed: None. Treatment and response: As above. Complications: None. Time Spent with Patient Time attestation: Total time spent providing and/or coordinating discharge services: Discharge coordination time: Greater than 30 minutes Quality: Stroke Does the patient have a stroke diagnosis?: No Physical Exam Vital Signs: Vital Signs: Last Vital Signs Temp 98.1 F 08/08/21 07:56 Pulse 65 08/08/21 07:56 Resp 16 08/08/21 07:56 BP 110/56 L 08/08/21 07:56 Pulse Ox 95 08/08/21 07:56 Body Mass Index 20.7 Gen: in no acute distress HEENT: sclera anicteric, moist mucus membranes Neck: supple Lungs: clear to auscultation bilaterally Heart: regular rate and rhythm, no murmurs Abd: soft, non-tender, non-distended Ext: no edema Skin: warm/well-perfused Neuro: alert and oriented x3, 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 Psych: appropriate affect DS: Data Data Completed and Pending Labs on day of discharge: Laboratory Results - last 24 hr 08/07/21 08/07/21 08/07/21 10:17 16:07 20:08 POC Glucose 122 H 154 H 138 H Discharge Plan Discharge Patient Disposition: Home, Self-Care Discharge Diagnosis: MS Flare Referrals: Ziggy Wolf MD [Physician] - 1 Week (follow up in 1 week) Physician,Unknown [Primary Care Provider] - 1 Week Discharge Medications: No Action No Known Home Meds RF: 0 Discharge Orders: Discharge Order (Routine); Ordered 08/08/21 Ordered By: Zahraa Ignacio Diet: advance to usual diet Activity on Discharge: As tolerated Stand Alone Forms: Patient Portal Discharge page, Work/School Release Care Plan Goals: ms flare seems to improved , completed solumedrol 5 days , follow up with neuro Dr Wolf in 1 week. Health Concerns: as above. Plan of Treatment: as above. Assessment: as above. Discharge Date/Time: 08/08/21 12:20
--- NOTE | 2021-08-08 09:55 | MHC.CM.PN ---
PLAN IS HOME TODAY - SELF CARE. RN AWARE OF PLAN. PATIENT HAS TRANSPORT HOME.
[2021-08-08 09:59] LABS: Glucose, Whole Blood 135 mg/dL (60-115)
[2021-08-08] MEDS: methylPREDNISolone Sod Succ 1,000 MG in 0.9 % Sodium Chloride 50 ML 66 MG IV (10:06)
[2021-08-09 21:30] LABS: JCV Antibody INDETERMINATE; JCV Index Value 0.25
[2021-08-09 21:57] LABS: JCV Ab Inhibition FINAL RSLT: NEGATIVE
== END 2021-08-08 12:20 | disposition home or self-care (01) | DRG 43 ==
LOC: HO.ED 08-03 01:57 → HO.EDOVER 08-03 03:26 → HO.S3 08-04 15:38
PROVIDERS: Family Medicine; Admitting Provider Hospitalist; Emergency Provider Emergency Medicine; Visit Provider Internal Medicine
DX: G35 Multiple sclerosis (principal); H35.022 Exudative retinopathy, left eye; Z20.822 Contact with and (suspected) exposure to COVID-19; G81.91 Hemiplegia, unspecified affecting right dominant side
CPT/HCPCS: 36415; 70450; 70544; 70549; 70553; 71045; 72156; 80048; 80061; 80076; 80307; 81003; 82550; 82607; 82746; 82947; 83036; 83690; 83735; 83880; 84443; 84484; 85025; 85652; 86038; 86039; 86140; 86617; 86618; 86711; 86780; 87389; 87635; 87798; 87801; 92523; 93005; 96360; 97110; 97112; 97162; 97166; 99284; 99285; A9585; J2930

== ENCOUNTER 2022-04-15 10:49 | Outpatient (REF) | payer OTHER, SELFPAY ==
[2022-04-15 11:03] LABS: MANUAL DIFF FLAG NO
[2022-04-15 11:13] LABS: Basophils Percent Auto 0.7 % (0-2); Eosinophils Absolute Auto 0.2 X10*3/uL (0.0-0.4); Eosinophils Percent Auto 3.4 % (0-4); Hematocrit 46.5 % (42.0-52.0); Hemoglobin 15.1 g/dl (14.0-18.0); Imm Gran Abs Auto 0.03 X10*3/uL (0.00-0.03); Imm Gran Pct Auto 0.5 % (0.0-0.4); Lymphocytes Absolute Auto 1.7 X10*3/uL (1.2-4.9); Lymphocytes Percent Auto 30.8 % (20-40); Mean Corpuscular HGB Conc 32.5 g/dl (31.0-36.0); Mean Corpuscular Hemoglobin 28.2 pg (27.0-33.0); Mean Corpuscular Volume 86.8 fL (80.0-98.0); Mean Platelet Volume 9.2 fL (9.4-12.4); Monocytes Absolute Auto 0.7 X10*3/uL (0.1-1.2); Monocytes Percent Auto 12.9 % (2-11); Neutrophils Absolute Auto 2.9 x10*3/uL (2.0-8.3); Neutrophils Percent Auto 51.7 % (45-73); Platelet Count 353 X10*3/uL (160-400); Red Blood Count 5.36 X10*6/uL (4.60-5.80); Red Cell Distribution Width 12.7 % (11.0-16.0); White Blood Count 5.6 X10*3/uL (4.8-10.8)
[2022-04-21 20:26] LABS: JCV Antibody INDETERMINATE; JCV Index Value 0.24
[2022-04-21 20:31] LABS: JCV Ab Inhibition FINAL RSLT: NEGATIVE
== END 2022-04-15 10:50 | disposition home or self-care (01) ==
LOC: HO.LAB 10:49
PROVIDERS: Visit Provider Psychiatry & Neurology Neurology
DX: G35 Multiple sclerosis (principal)
CPT/HCPCS: 36415; 85025; 86711

== ENCOUNTER 2022-04-24 14:58 | Outpatient (REF) | payer OTHER, SELFPAY ==
--- NOTE | ~2022-04-24 | MR_ITS ---
MR BRAIN WITHOUT AND WITH CONTRAST CLINICAL INFORMATION: Relapsing remitting multiple sclerosis. COMPARISON: Brain MRI 08/03/2021. TECHNIQUE: Multiplanar, multisequence MRI of the brain was obtained before and after the intravenous administration of 6.5 mL gadolinium. FINDINGS: Study is limited by artifact from the patient's oral braces. Accounting for artifact, there is likely been no interval change and pattern of T2 signal hyperintense lesions located within the supratentorial periventricular and subcortical white matter, the corpus callosum, and the infratentorial brain in keeping with the patient's history of multiple sclerosis. There are no enhancing lesions to suggest active demyelination. There is no hydrocephalus, extra-axial surface collection, or herniation. The major flow voids at the skull base are preserved. The stroke sensitive diffusion series and the blood sensitive gradient series are nondiagnostic secondary to artifact from the patient's oral braces. The craniocervical junction is normal. Osseous marrow signal intensity is homogenous. The visualized soft tissues are unremarkable. MR/MR head/brain wo/w con IMPRESSION: Study is limited by artifact from the patient's oral braces. Accounting for artifact, there is stable pattern lesional burden throughout the supratentorial greater than infratentorial brain in keeping with the patient's history of multiple sclerosis. There are no enhancing lesions to suggest active demyelination.
== END 2022-04-24 14:59 | disposition home or self-care (01) ==
LOC: HO.MRI 14:58
PROVIDERS: Visit Provider Psychiatry & Neurology Neurology
DX: G35 Multiple sclerosis (principal)
CPT/HCPCS: 70553; A9585

== ENCOUNTER 2023-05-14 11:55 | Outpatient (REF) | payer OTHER, SELFPAY ==
[2023-05-14 13:06] LABS: Eosinophils Absolute Auto 0.2 X10*3/uL (0.0-0.4); Eosinophils Percent Auto 4.6 % (0-4); Hematocrit 44.2 % (42.0-52.0); Hemoglobin 14.5 g/dl (14.0-18.0); Lymphocytes Absolute Auto 2.1 X10*3/uL (1.2-4.9); Lymphocytes Percent Auto 49.8 % (20-40); MANUAL DIFF FLAG SCAN; Mean Corpuscular HGB Conc 32.8 g/dl (31.0-36.0); Mean Corpuscular Hemoglobin 28.5 pg (27.0-33.0); Mean Corpuscular Volume 86.8 fL (80.0-98.0); Mean Platelet Volume 9.5 fL (9.4-12.4); Monocytes Absolute Auto 0.8 X10*3/uL (0.1-1.2); Monocytes Percent Auto 20.2 % (2-11); Neutrophils Percent Auto 24.4 % (45-73); Platelet Count 247 X10*3/uL (160-400); Red Blood Count 5.09 X10*6/uL (4.60-5.80); Red Cell Distribution Width 12.8 % (11.0-16.0); SCAN SMEAR FLAG 1; White Blood Count 4.2 X10*3/uL (4.8-10.8)
[2023-05-14 13:32] LABS: Alanine Aminotransferase 14 U/L (0-40); Albumin Level 4.3 g/dL (3.5-5.0); Alkaline Phosphatase 50 U/L (39-117); Anion Gap 12 (12-20); Aspartate Amino Transferase 13 U/L (5-37); Bilirubin Direct 0.1 mg/dL (0.0-0.5); Bilirubin Total 0.4 mg/dL (0.0-1.0); Blood Urea Nitrogen 13 mg/dL (9-16); Calcium 9.9 mg/dL (8.4-10.2); Carbon Dioxide 27 mmol/L (22-29); Chloride 108 mmol/L (96-108); Estimated Glomerular Filt Rate > 60; Glucose Random 85 mg/dL (60-115); Sodium 143 mmol/L (135-145); Total Protein 6.9 g/dL (6.5-8.0)
[2023-05-14 13:46] LABS: SLIDE REVIEW VERIFIED
[2023-05-14 13:55] LABS: Erythrocyte Sedimentation Rate 2 MM/HR (0-15)
[2023-05-21 12:55] LABS: Anti Nuclear Antibody Screen POSITIVE (NEGATIVE)
== END 2023-05-14 11:56 | disposition home or self-care (01) ==
LOC: HO.LAB 11:55
PROVIDERS: Visit Provider Psychiatry & Neurology Neurology
DX: G35 Multiple sclerosis (principal)
CPT/HCPCS: 36415; 80053; 82248; 82550; 85025; 85652; 86038; 86039

== ENCOUNTER 2023-11-02 12:42 | Outpatient (REF) | payer OTHER, SELFPAY ==
[2023-11-02 13:05] LABS: MANUAL DIFF FLAG NO
[2023-11-02 14:05] LABS: Alanine Aminotransferase 14 U/L (0-40); Albumin Level 4.4 g/dL (3.5-5.0); Alkaline Phosphatase 50 U/L (39-117); Anion Gap 9 (12-20); Aspartate Amino Transferase 14 U/L (5-37); Bilirubin Direct 0.3 mg/dL (0.0-0.5); Bilirubin Total 1.1 mg/dL (0.0-1.0); Blood Urea Nitrogen 12 mg/dL (9-16); Calcium 9.5 mg/dL (8.4-10.2); Carbon Dioxide 27 mmol/L (22-29); Chloride 109 mmol/L (96-108); Estimated Glomerular Filt Rate > 60; Glucose Random 91 mg/dL (60-115); Potassium 4.2 mmol/L (3.3-5.1); Sodium 141 mmol/L (135-145); Total Protein 7.1 g/dL (6.5-8.0)
[2023-11-02 14:07] LABS: Basophils Absolute Auto 0.1 X10*3/uL (0.0-0.2); Basophils Percent Auto 1.4 % (0-2); Eosinophils Absolute Auto 0.2 X10*3/uL (0.0-0.4); Eosinophils Percent Auto 4.6 % (0-4); Hematocrit 45.4 % (42.0-52.0); Hemoglobin 14.8 g/dl (14.0-18.0); Imm Gran Abs Auto 0.02 X10*3/uL (0.00-0.03); Imm Gran Pct Auto 0.5 % (0.0-0.4); Lymphocytes Absolute Auto 1.7 X10*3/uL (1.2-4.9); Lymphocytes Percent Auto 38.5 % (20-40); Mean Corpuscular HGB Conc 32.6 g/dl (31.0-36.0); Mean Corpuscular Hemoglobin 28.7 pg (27.0-33.0); Mean Platelet Volume 9.7 fL (9.4-12.4); Monocytes Absolute Auto 0.6 X10*3/uL (0.1-1.2); Monocytes Percent Auto 13.8 % (2-11); Neutrophils Absolute Auto 1.8 x10*3/uL (2.0-8.3); Neutrophils Percent Auto 41.2 % (45-73); Platelet Count 346 X10*3/uL (160-400); Red Blood Count 5.16 X10*6/uL (4.60-5.80); White Blood Count 4.4 X10*3/uL (4.8-10.8)
== END 2023-11-02 12:43 | disposition home or self-care (01) ==
LOC: HO.LAB 12:42
PROVIDERS: Visit Provider Psychiatry & Neurology Neurology
DX: G35 Multiple sclerosis (principal)
CPT/HCPCS: 36415; 80048; 80076; 85025